=== PATIENT | female | born 1965 | race Caucasian/White ===

== ENCOUNTER → 2023-11-29 16:55 | Outpatient (REF) | payer OTHER, SELFPAY | LOC: WDC 16:55 | PROVIDERS: ATTENDING PHYSICIAN Family Medicine | DX: Z12.31 Encounter for screening mammogram for malignant neoplasm of breast (principal) | CPT/HCPCS: 77063; 77067 ==

== ENCOUNTER 2024-02-27 06:50 | Emergency (ER) | payer OTHER, SELFPAY ==
[2024-02-27 06:52] VITALS: BP 150/90
[2024-02-27 07:07] VITALS: BMI 38.3
[2024-02-27] MEDS: NSS 1000 IV (07:23)
[2024-02-27 07:30] LABS: % Basophils 0.5 % (0-2); % Eosinophils 1.2 % (0-6); % Immature Granulocytes 0.2 % (0-0.5); % Lymphocytes 10.9 % (20.5-51.1); % Monocytes 5.2 % (1.7-9.3); Absolute Basophils 0.1 10^3/uL (0-0.2); Absolute Eosinophils 0.1 10^3/uL (0-0.7); Absolute Lymphocytes 1.1 10^3/uL (1.2-3.4); Absolute Monocytes 0.5 10^3/uL (0.1-0.6); Absolute Neutrophils 8.2 10^3/uL (1.4-6.5); Hematocrit 41.9 % (37.0-47.0); Hemoglobin 14.4 g/dL (12.0-16.0); Mean Corp Hgb Conc. 34.4 g/dL (33.0-37.0); Mean Corpuscular Hgb 29.1 pg (27.0-31.0); Mean Corpuscular Volume 84.8 fL (81.0-99.0); Mean Platelet Volume 10.6 fL (7.4-10.4); Nucleated Red Blood Cells % 0 %; Platelet Count 259 10^3/uL (130-400); Red Blood Cell Count 4.94 10^6/uL (4.20-5.40); White Blood Cell Count 9.9 10^3/uL (4.8-10.8)
--- NOTE | 2024-02-27 07:30 | ED.GENMED ---
History of Present Illness
General
Chief Complaint: Bowel Problem
Source: patient
Exam Limitations: none
Time Seen by Provider: 02/27/24 07:02
Nursing documentation reviewed up to this point in time: agreed with
History of Present Illness
History of Present Illness:
58-year-old female with past medical history of GERD presenting to the emergency department today for concerns of change in bowel movements over the past 3 months decreasing bowel movements significantly over the past few weeks. She is tried
laxatives and stool softeners without relief over the past few days has not been able to have a bowel movement is starting to feel significant pressure and some discomfort to her abdomen and significant worsening distention. Last colonoscopy was a
few years ago. Does have a family history of colon cancer.
Review of Systems
Review of Systems
Allergies reviewed?: Yes
All Other Systems: ROS reviewed and negative except as documented in HPI and ROS
Phy Exam
Physical Exam
Physical Exam:
GENERAL: Alert , in no apparent distress
EYE: pupils equal and reactive
NECK: Supple, no significant adenopathy.
ENT: o/p clr, mmm.
CARDIAC: Regular rate and rhythm .
LUNGS: Clear breath sounds bilaterally, no acute respiratory distress, no wheezes/rales/rhonchi
ABDOMEN: Distended abdomen mild vague discomfort no specific focal tenderness
NEUROLOGICAL: Alert and oriented, no focal neuro deficits
SKIN: Warm and dry, skin intact.
MUSCULOSKELETAL: No edema, well perfused.
PSYCH: Normal and appropriate interaction.
Course
Orders/Labs/Results
Orders:
Orders
02/27/24 07:16
CT Abd/Pel (IV only)-[facility] only Urgent
Comment:
Reason For Exam: abd distension, decreasing BMxmonth, no BM xdays
0.9% Sodium Chloride 1000 ml [Nss] 1,000 ml IV BOLUS
02/27/24 07:20
Complete Blood Count/With Diff Urgent
Comprehensive Metabolic Panel Urgent
Urinalysis Reflex To Culture Urgent
Date Specimen was Collected: 02/27/24
Time Specimen was Collected: 07:20
Abnormal Lab Results
02/27/24
07:20
MPV 10.6 H fL
(7.4-10.4)
Absolute Neuts (auto) 8.2 H 10^3/uL
(1.4-6.5)
Absolute Lymphs (auto) 1.1 L 10^3/uL
(1.2-3.4)
Neutrophils % 82.0 H %
(42.2-75.2)
Lymphocytes % 10.9 L %
(20.5-51.1)
Glucose 133 H mg/dl
(70-99)
Urine Ketones Trace A
(Negative)
02/27/24 07:20
02/27/24 07:20
Vital Signs
Initial and Last Documented VS:
Initial Vital Signs
Temp Pulse Resp BP Pulse Ox
99.2 F 126 24 150/90 100
02/27/24 06:52 02/27/24 06:52 02/27/24 06:52 02/27/24 06:52 02/27/24 06:52
Last Documented Vital Signs
Temp Pulse Resp BP Pulse Ox
99.2 F 126 24 127/77 96
02/27/24 06:52 02/27/24 06:52 02/27/24 06:52 02/27/24 08:00 02/27/24 08:00
MDM/Problems Addressed
MDM/Problems Addressed:
58-year-old female presenting to the emergency department today with concerns of change in bowel movements decreased bowel movements over the past few months possibly worsening over the past few days with increased distention and discomfort. Upon
arrival tachycardic. Heart rate improving on reassessment here. No signs of complication. Patient appears to have constipation on CT scan without signs process. Patient was given a bowel regimen but otherwise stable for outpatient follow-up.
*Critical Care Note
Total Time (30-74mins, 75-104mins- exclusive of procedures): Not Applicable
ED Attending Note
-
Portions of this chart may have been created with voice recognition software.� Occasional wrong word or��sound alike� substitutions may have occurred due to the inherent limitations of voice recognition software.
Discharge Plan
Departure
Patient Disposition: Home (Routine Discharge)
Date of Disposition: 02/27/24
Time of Disposition: :
Patient with high blood pressure during this ER visit?: No
Condition: Good
Covid-19: Not Applicable
Discharge Problem:
Constipation
Instructions: Constipation, Adult (DC)
Prescriptions:
New
magnesium citrate Solution
300 ml PO DAILY PRN (Reason: Constipation) Qty: 296 0RF
polyethylene glycol 3350 [Miralax] 17 gram/dose powder
4 g PO DAILY Qty: 119 0RF
No Action
valacyclovir 500 MG tablet
500 mg PO PRN PRN (Reason: COLD SORES)
diphenhydramine HCl [NightTime Sleep Aid (diphen)] 25 MG capsule
25 mg PO HS
ascorbate calcium (vitamin C) 500 MG tablet
1,000 mg PO QPM
oxymetazoline [Nasal Bosworth 12Hr(oxymetazoline] 30 ML mist
1 spray intranasal DAILY
mfzzzjxt-wwl-yjwy-FA-vit K-lut [Centrum Silver Women] 1 EACH tablet
1 ea PO QPM
Ca-D3-mag cr-cofk-faf-emmanuel-bor [Calcium 600-D3 Plus (mag-zinc)] 1 EACH tablet
1 ea PO QPM
Referrals:
Estee Pickens MD [Family Provider] -
Activity Restrictions/Additional Instructions:
You came to the emergency department today with concerns of constipation. CT scan confirmed constipation without signs of complication. Please take magnesium citrate as a single dose when you get home. Please also take MiraLAX daily over the next
week. Please stay very hydrated and start taking Metamucil daily as well. Return to the emergency department for any worsening, new or concerning symptoms. Otherwise follow-up closely with your GI doctor.
Interventions
Interventions:
*Risk Screen - Suicide Last Done: 02/27/24 06:52
*General Assessment Last Done: 02/27/24 07:07
*Neglect/Abuse Screening Last Done: 02/27/24 06:52
ED- Fall Risk Assessment Last Done: 02/27/24 07:07
*ED COVID-19 Vaccine History Last Done: 02/27/24 07:07
JG-Swanba-Vwkzrpkpab Assessment Last Done: 02/27/24 07:07
Discharge Date and Time
Print Language: AMHARIC
[2024-02-27 07:43] VITALS: BP 126/82
[2024-02-27 07:46] LABS: ALT (SGPT) 25 U/L (0-35); AST (SGOT) 26 U/L (14-36); Albumin 4.6 g/dl (3.5-5.0); Alkaline Phosphatase 117 U/L (38-126); Blood Urea Nitrogen 16 mg/dl (7-17); Calcium 10.1 mg/dl (8.4-10.2); Carbon Dioxide 24 mmol/L (22-30); Chloride 105 mmol/L (98-107); Estimated Creatinine Clearance 92 ml/min; Glucose 133 mg/dl (70-99); Potassium 3.9 mmol/L (3.5-5.1); Sodium 139 mmol/L (135-145); Total Bilirubin 0.7 mg/dl (0.2-1.3); eGFR > 60.00
[2024-02-27 07:51] LABS: Total Protein 6.8 g/dl (6.3-8.2)
[2024-02-27 07:58] LABS: Urine Albumin Negative (Neg - Trace); Urine Bilirubin Negative (Negative); Urine Character Clear (Clear); Urine Color Yellow; Urine Glucose Negative (Negative); Urine Ketone Trace (Negative); Urine Leukocyte Negative (Negative); Urine Nitrite Negative (Negative); Urine Occult Blood Negative (Negative); Urine Urobilinogen Negative (Neg - 1+)
[2024-02-27 08:00] VITALS: BP 127/77
== END 2024-02-27 09:34 | disposition home or self-care (01) ==
LOC: EMR 06:50
PROVIDERS: Physician Assistant; EMERGENCY PHYSICIAN Emergency Medicine; FAMILY PHYSICIAN Family Medicine
DX: K59.00 Constipation, unspecified (principal); K21.9 Gastro-esophageal reflux disease without esophagitis; Z80.0 Family history of malignant neoplasm of digestive organs
CPT/HCPCS: 99284; 96360; 74177; 80053; 81003; 85025; Q9967